=== PATIENT | male | born 1965 | race Caucasian/White ===

== ENCOUNTER 2024-11-16 09:09 | Day surgery (SDC) | payer OTHER, SELFPAY ==
[2024-11-16] VITALS (13 sets, daily range): BP systolic 107–152; BP diastolic 69–95; BMI 33.5
[2024-11-16] MEDS: ZOFRAN 4 MG IV (05:49)
[2024-11-16] MEDS: TORADOL 30 MG IV (05:50)
[2024-11-16] MEDS: NSS 1000 IV (05:50)
[2024-11-16 06:02] LABS: % Basophils 0.5 % (0-2); % Eosinophils 1.1 % (0-6); % Immature Granulocytes 0.3 % (0-0.5); % Lymphocytes 20.9 % (20.5-51.1); % Monocytes 7.2 % (1.7-9.3); Absolute Eosinophils 0.1 10^3/uL (0-0.7); Absolute Lymphocytes 1.4 10^3/uL (1.2-3.4); Absolute Monocytes 0.5 10^3/uL (0.1-0.6); Absolute Neutrophils 4.6 10^3/uL (1.4-6.5); Hematocrit 42.1 % (39.0-52.0); Hemoglobin 14.3 g/dL (13.0-18.0); Mean Corpuscular Hgb 30.9 pg (27.0-31.0); Mean Corpuscular Volume 90.9 fL (80.0-94.0); Mean Platelet Volume 8.7 fL (7.4-10.4); Nucleated Red Blood Cells % 0 % (-); Platelet Count 206 10^3/uL (130-400); Red Blood Cell Count 4.63 10^6/uL (4.70-6.10); Red Cell Dist. Width 12.8 % (11.5-14.5); White Blood Cell Count 6.5 10^3/uL (4.8-10.8)
--- NOTE | 2024-11-16 06:05 | ED.GENMED ---
History of Present Illness
General
Chief Complaint: Flank Pain
Time Seen by Provider: 11/16/24 06:03
History of Present Illness
History of Present Illness:
TIME OF INITIAL ENCOUNTER: 6:10 AM
HPI: Patient presents with abrupt onset right flank pain that started about 4 hours ago. He tried Tylenol without improvement. He states that he had lithotripsy here about 4 years ago. The pain is described as severe and is associated with
nausea. After Zofran was given, the nausea is improved. He has some abdominal 'bloating'.
EXAM:
GENERAL: Well appearing, but appears somewhat uncomfortable
HEENT: Moist oral mucosa
CARDIOVASCULAR: No murmurs, normal heart rate, regular rhythm, No chest wall tenderness
PULMONARY: No respiratory distress, breath sounds are clear and equal
ABDOMEN: Soft with no peritoneal signs, very minimal diffuse tenderness, right CVA tenderness
NEUROLOGIC: Excellent strength all extremities, no coordination deficits
PSYCHIATRIC: Appropriate mental status, normal insight and judgement
EXTREMITIES: Nontender, no edema, moves all extremities equally
SKIN: No rash, no lesions
NUMBER AND COMPLEXITY OF PROBLEMS ADDRESSED AT THE ENCOUNTER
� Chronic conditions affecting care: High blood pressure, kidney stones white count and hemoglobin are normal
� Acute Exacerbation and/or Progression of Chronic Illness: This is an acute exacerbation of a recurring problem
� Differential Diagnosis includes: Ureteral stone, UTI, pyelonephritis, musculoskeletal etiology
AMOUNT AND/OR COMPLEXITY OF DATA TO BE REVIEWED AND ANALYZED
� I performed an independent evaluation of and my interpretation is:
EKG:
CT: CT shows a 5 to 6 mm right UVJ stone
X-rays:
Laboratory Studies: White count and hemoglobin are normal, renal function is normal
Other:
� Review of other/old records: I reviewed records, the patient had laser cystolitholopaxy and was found to have a 2 cm bladder stone
� Clinical information was obtained by an independent historian: Spoke to at bedside
� Prescriptions/Medications Considered but not given:
� Further testing considered but not performed:
RISK OF COMPLICATIONS AND/OR MORBIDITY OR MORTALITY OF PATIENT MANAGEMENT
� Social determinants of health affecting care: Lives at home
� Discussion with other providers: Discussed with Dr. Mckinneyee below
� Escalation of care including admission/observation vs risk of discharge considered: Prior to the arrival of my shift, the patient was ordered Toradol and labs were obtained.
ANY OTHER UPDATES:
6:30 AM: Toradol with only some improvement, will give Dilaudid but patient only wants a low dose.
7:30 AM: On reassessment, continues to improve with Dilaudid but some pain persists. Appears more comfortable. Still awaiting urinalysis.
8:15 AM: Urinalysis shows blood without evidence of infection.
8:40 AM: Discussed case with Dr. Carlisle who is planning on taking patient to the OR and patient agrees with this plan
Past History
Past History
ED Past Medical History: HTN and Other (Kidney stones)
ED Past Surgical History: Other
Social History
Tobacco: Non-smoker
Phy Exam
Physical Exam
Physical Exam:
See HPI
Course
Orders/Labs/Results
Orders:
Orders
11/16/24 05:45
Complete Blood Count/With Diff Urgent
Comprehensive Metabolic Panel Urgent
11/16/24 05:48
Ketorolac [Toradol] 30 mg .ROUTE .STK-MED ONE
Ondansetron Injectable [Zofran] 4 mg .ROUTE .STK-MED ONE
11/16/24 05:49
Ondansetron Injectable [Zofran] 4 mg IV NOW STA
11/16/24 05:50
CT Abd/pel Without Iv Or Oral Urgent
Comment:
Reason For Exam: acute right flank pain
0.9% Sodium Chloride 1000 ml [Nss] 1,000 ml IV BOLUS
Ketorolac [Toradol] 30 mg IV NOW STA
11/16/24 06:35
HYDROmorphone [Dilaudid] 0.5 mg IV NOW STA
11/16/24 07:31
Urinalysis Reflex To Culture Urgent
Date Specimen was Collected: 11/16/24
Time Specimen was Collected: 05:39
Urine Microscopic Reflex Cult Urgent
11/16/24 07:45
Tamsulosin [Flomax] 0.4 mg PO NOW STA
11/16/24 08:23
HYDROmorphone [Dilaudid] 0.5 mg IV NOW STA
11/16/24 09:02
Fentanyl Citrate/Pf [Sublimaze] 25 mcg IV PACU-Q5MPRN PRN
Fentanyl Citrate/Pf [Sublimaze] 50 mcg IV PACU-Q5MPRN PRN
Meperidine [Demerol] 12.5 mg IV PACU-Q5MPRN PRN
Ondansetron Injectable [Zofran] 4 mg IV PACU-ONCEPRN PRN
Prochlorperazine [Compazine] 5 mg IV PACU-ONCEPRN PRN
Notify MD As Directed
Notify physician if: for SDS patients with known or suspected sleep obstructive sleep apnea, monitor in the
PACU.
Notify MD for any apneic/desaturation episodes
O2 Therapy [RESP] Urgent
Titrate/Wean O2 to maintain O2 sat greater than (%): 92
Special Instructions: -Provide supplemental oxygen to achieve O2 sat of 92% or greater.
-After 15 min, may wean O2 and discontinue if patient is able to maintain O2 sat of 92%
or greater during recovery period.
If patient is a discharge home, without oxygen therapy, notify anestheiologist if
unable to maintain O2 SAT of 92% or greater on room air for MD clearance.
11/16/24 09:15
Normosol (Mult Electrolytes) [Normosol-R/Plasmalyte-A] 1,000 ml IV PER PROTOCOL
11/16/24 09:16
Dexamethasone Sod Phosphate [Decadron] 20 mg .ROUTE .STK-MED ONE
Fentanyl Citrate/Pf [Sublimaze] 100 mcg .ROUTE .STK-MED ONE
Ondansetron Injectable [Zofran] 4 mg .ROUTE .STK-MED ONE
11/16/24 09:18
Lidocaine HCl/Pf [Xylocaine-Mpf 1% Vial] 50 mg .ROUTE .STK-MED ONE
Phenylephrine HCl/0.9% NaCl [Keyshawn-Synephrine] 1,000 mcg .ROUTE .STK-MED ONE
Propofol [Diprivan] 20 ml .ROUTE .STK-MED
11/16/24 09:19
CeFAZolin SODIUM [Ancef] 2,000 mg .ROUTE .STK-MED ONE
CeFAZolin SODIUM [Ancef] 4,000 mg .ROUTE .STK-MED ONE
Abnormal Lab Results
11/16/24 11/16/24
05:45 07:31
RBC 4.63 L 10^6/uL
(4.70-6.10)
Glucose 145 H mg/dl
(70-99)
Urine Ketones 2+ A
(Negative)
Ur Occult Blood Reflex 3+ A
(Negative)
Urine RBC 50-60 A /HPF
(0-2)
Urine Bacteria (Reflex) Few A
(Negative)
11/16/24 05:45
11/16/24 05:45
Vital Signs
Initial and Last Documented VS:
Initial Vital Signs
Temp Pulse Resp BP Pulse Ox
36.4 C 67 22 152/79 99
11/16/24 05:29 11/16/24 05:29 11/16/24 05:29 11/16/24 05:29 11/16/24 05:29
Last Documented Vital Signs
Temp Pulse Resp BP Pulse Ox
36.4 C 69 16 148/87 96
11/16/24 05:29 11/16/24 08:53 11/16/24 07:14 11/16/24 08:52 11/16/24 07:15
*Critical Care Note
Total Time (30-74mins, 75-104mins- exclusive of procedures): Not Applicable
ED Attending Note
-
Portions of this chart may have been created with voice recognition software.� Occasional wrong word or��sound alike� substitutions may have occurred due to the inherent limitations of voice recognition software.
Discharge Plan
Departure
Patient Disposition: OR
Date of Disposition: 11/16/24
Time of Disposition: 08:41
Presentation/result/management discussed w/ accepting MD/DO: dr carlisle
Discharge Problem:
Right distal ureteral calculus
Interventions
Interventions:
*Risk Screen - Suicide Last Done: 11/16/24 05:29
*General Assessment Last Done: 11/16/24 05:29
*Neglect/Abuse Screening Last Done: 11/16/24 05:29
ED- Fall Risk Assessment Last Done: 11/16/24 05:32
*ED COVID-19 Vaccine History Last Done: 11/16/24 05:36
*Nursing Disposition Last Done: 11/16/24 09:07
OH-Mkupbu-Gnsrpoxkpr Assessment Last Done: 11/16/24 05:36
ED-Male Genitourinary Assessment Last Done: 11/16/24 05:36
Discharge Date and Time
Discharge Date/Time: 11/16/24 09:08
[2024-11-16 06:07] LABS: ALT (SGPT) 27 U/L (0-50); AST (SGOT) 25 U/L (17-59); Albumin 4.4 g/dl (3.5-5.0); Alkaline Phosphatase 114 U/L (38-126); Blood Urea Nitrogen 15 mg/dl (9-20); Calcium 9.1 mg/dl (8.4-10.2); Carbon Dioxide 24 mmol/L (22-30); Chloride 101 mmol/L (98-107); Estimated Creatinine Clearance 104 ml/min; Glucose 145 mg/dl (70-99); Potassium 4.2 mmol/L (3.5-5.1); Sodium 136 mmol/L (135-145); Total Bilirubin 0.6 mg/dl (0.2-1.3); Total Protein 6.8 g/dl (6.3-8.2); eGFR > 60.00
[2024-11-16] MEDS: DILAUDID 0.5 MG IV ×2 (06:39→08:29)
[2024-11-16 07:41] LABS: Urine Albumin Negative (Neg - Trace); Urine Bilirubin Negative (Negative); Urine Character Clear (Clear); Urine Color Yellow; Urine Glucose Negative (Negative); Urine Ketone 2+ (Negative); Urine Leukocyte Negative (Negative); Urine Nitrite Negative (Negative); Urine Occult Blood 3+ (Negative); Urine Specific Gravity 1.015 (<1.030); Urine Urobilinogen Negative (Neg - 1+)
[2024-11-16] MEDS: FLOMAX 0.4 MG PO (08:00)
[2024-11-16 08:19] LABS: Urine Mucus Few
[2024-11-16 08:20] LABS: Urine Red Blood Cell 50-60 /HPF (0-2)
[2024-11-16 08:21] LABS: Urine Bacteria Few (Negative)
--- NOTE | 2024-11-16 09:01 | HP.FOC2 ---
Focused History & Physical
Chief Complaint
HPI:
Chief Complaint:
colic
HPI / Indication for Planned Procedure:
right ureteral stone with intractable pain
Relevant Past Medical History: Other (hypertension, kindey and bladder stone)
Relevant Social History: Negative
Relevant Family History: Negative
Relevant Past Surgical History: Positive for (cystolitholopaxy)
Review of Systems
Review of Pertinent Systems: All Systems Negative
Medication
See Medication form for detailed medications: Yes
Medication List (including Herbals & OTC):
hydrocodone 5 mg-acetaminophen 325 mg tablet 1 tab PO Q8H PRN Pain #10 tabs 03/12/23
ketorolac 10 mg tablet 10 mg PO Q8H PRN Pain #10 tabs 03/12/23
tamsulosin 0.4 mg capsule (Flomax) 0.4 mg PO DAILY #10 caps 03/12/23
Medications Reviewed: Yes
Allergies and Reactions
Patient has Allergies: No
Noted Allergies and Reactions:
Allergy/AdvReac Type Severity Reaction Status Date / Time
Environmental Allergy Watery Uncoded 06/12/19 07:50
eyes,
Rhinitis
Pertinent Physical Exam
All Other Systems: Negative
Head/Neck: Normal
Lungs: Normal
Heart: Normal
Abdomen: Normal
Extremities: Normal
Neurological: Normal
Diagnosis / Assessment
stone with intractable pain- 5mm right uvj
all films,history and labs reviewed
Plan / Procedure
OR for ureteroscopy and stent
risks, benefits, alternatives and disabilities reviewed
plan for discharge from PACU if stable
Anesthesia/Sedation to be done by Anesthesia Provider: Yes
--- NOTE | 2024-11-16 09:56 | W.IMMPOSTOP ---
Surgical Immed Post Op Note
-
Primary Surgeon:
orestes
Assisting Surgeon:
Pre-op Diagnosis:
right ureteral stone
Post-op Diagnosis:
same
Procedure Performed:
right ureteroscopy/laser litho and stent
Anesthesia Type:
gen
Specimen / Cultures:
stone
Estimated Blood Loss:
2cc
Complications:
none
Operative Findings:
right uvj stone- fragmented and extracted
stent placed
home today
[2024-11-16] MEDS: Pyridium 200 MG PO (10:50)
== END 2024-11-16 11:09 | disposition home or self-care (01) ==
LOC: SDS 09:09
PROVIDERS: Emergency Medicine; ATTENDING PHYSICIAN Specialist; EMERGENCY PHYSICIAN Emergency Medicine; FAMILY PHYSICIAN Internal Medicine
DX: N20.1 Calculus of ureter (principal)
CPT/HCPCS: 52356; 74018; 74176; 76000; 80053; 81003; 81015; 82365; 85025; 96361; 96374; 96375; 96376; 99284; C2617